=== PATIENT | male | born 1960 | race Caucasian/White ===

== ENCOUNTER 2016-10-07 00:21 | Emergency (ER) | payer OTHER ==
--- NOTE | 2016-10-07 00:59 | EDM.PDOC ---
ED HPI GENERAL MEDICAL PROBLEM - General Time Seen by Provider: 10/07/16 00:25 Source of Information: Reports: Patient, Family History Limitations: Reports: No Limitations - History of Present Illness INITIAL COMMENTS - FREE TEXT/NARRATIVE: According to patient he has been vacationing up here. He is not sure what happen. claims he must have walked out of his bed to use bathroom and as it is a new place might have walked into the stair. claims he rolled down about 9 steps and landed on ground floor. Since he fell he had not moved and had turned blue for about 10 minutes according to . feels like patient had lost consciousness but not sure. When the EMT arrived, pad hand had him in C-collar and oxygen. Pt claims his left lower chest hurts, hyperventilating. rate pain 10/10. starting to calm down now. no abdominal pain. No seizures. No confusion. No blurry vision. Onset: Today Onset Date: 10/06/16 Onset Time: 23:30 Duration: Getting Worse Chest Pain Score (Numeric/FACES): 8 - Related Data Allergies Allergy/AdvReac Type Severity Reaction Status Date / Time niacin Allergy Rash Verified 04/25/16 08:58 Home Meds: Home Meds Furosemide 20 mg PO BID 04/25/16 [History] Hydrochlorothiazide 25 mg PO DAILY 04/25/16 [History] Metoprolol Tartrate 6.25 mg PO BID 04/25/16 [History] Multivitamin [Multivitamins] 1 tab PO BEDTIME 04/25/16 [History] Simvastatin 40 mg PO BEDTIME 04/25/16 [History] Codeine/guaiFENesin [Robitussin AC] 180 ml PO Q4H PRN #0 cup 04/26/16 [Rx] Prednisone [IMW: predniSONE] 40 mg PO WITHBREAKFAST #5 tab 04/26/16 [Rx] Past Medical History Cardiovascular History: Reports: Afib, High Cholesterol, Hypertension, Pacemaker , Other (See Below) Other Cardiovascular History: defib. Neurological History: Reports: Headaches, Chronic Endocrine/Metabolic History: Reports: Obesity/BMI 30+ Hematologic History: Reports: Blood Transfusion(s) - Past Surgical History Musculoskeletal Surgical History: Reports: Other (See Below) Social & Family History - Family History Family Medical History: Noncontributory - Tobacco Use Smoking Status *Q: Never Smoker Years of Tobacco use: 25 Used Tobacco, but Quit: Yes Month Tobacco Last Used: 120 - Caffeine Use Caffeine Use: Reports: None - Alcohol Use Days Per Week of Alcohol Use: 7 Number of Drinks Per Day: 3 Total Drinks Per Week: 21 - Recreational Drug Use Recreational Drug Use: No ED ROS GENERAL - Review of Systems Review Of Systems: See Below Constitutional: Denies: Fever, Chills, Fatigue, Night Sweats, Diaphoresis HEENT: Denies: Sinus Problem, Throat Pain, Throat Swelling Respiratory: Reports: Wheezing, Pleuritic Chest Pain. Denies: Shortness of Breath, Cough, Sputum Cardiovascular: Reports: Chest Pain. Denies: Lightheadedness GI/Abdominal: Reports: Abdominal Pain. Denies: Constipation, Diarrhea, Hematemesis, Hematochezia, Nausea, Vomiting : Denies: Dysuria, Flank Pain, Hematuria, Urgency Musculoskeletal: Reports: Leg Pain, Joint Swelling Skin: Reports: Bruising. Denies: Pruritis, Rash Neurological: Denies: Confusion, Dizziness, Headache, Numbness, Paresthesia, Tingling, Tremors, Change in Speech ED EXAM, GENERAL - Physical Exam Exam: See Below Exam Limited By: No Limitations General Appearance: Alert, WD/WN, No Apparent Distress Eye Exam: Bilateral Eye: EOMI, PERRL Ears: Normal External Exam, Normal Canal, Hearing Grossly Normal, Normal TMs Nose: Normal Inspection, Normal Mucosa, Other (old dried blood in the right nares. no nasal spine tenderness) Throat/Mouth: Normal Inspection, Normal Lips, Normal Teeth, Normal Gums, Normal Oropharynx, Normal Voice, No Airway Compromise Head: Atraumatic, Normocephalic Neck: Normal Inspection, Supple, Non-Tender, Other (Neck in C-Collar) Respiratory/Chest: Lungs Clear, Normal Breath Sounds, No Accessory Muscle Use, Rhonchi (scatterred), Other (tender over the left lower chest to palaption) Cardiovascular: Normal Peripheral Pulses, Regular Rate, Rhythm, No Edema, No Gallop, No JVD, No Murmur, No Rub Peripheral Pulses: 2+: Carotid (L), Carotid (R), Brachial (R), Radial (L), Dorsalis Pedis (L), Dorsalis Pedis (R) GI/Abdominal: Normal Bowel Sounds, Soft, No Organomegaly, No Distention, No Abnormal Bruit, No Mass, Pelvis Stable, Tender (there is a large skin brusie over the left upper quadrant. No external bleeding.vague tenderness in the left upper quadrant). No: Guarding, Rigid, Rebound, Splenomegaly Back Exam: Normal Inspection, Full Range of Motion, NT Extremities: Normal Range of Motion, No Pedal Edema, Normal Capillary Refill, Other (Ther is swelling over th eright knee. More so over the attachment of the quadriceps tendon to the patella. Able to flex and extend the knee. tender over patella to pressure) Neurological: Alert, Oriented, CN II-XII Intact, Normal Cognition, Normal Gait, Normal Reflexes Skin Exam: Warm, Other (large skin brusing over the left upper quadrant of the abdomen and flank.) Course - Vital Signs Text/Narrative:: Pt rates his pain on 10/10 but appear calm and resting. He does c/o of pain in his left lower chest. His EKG is in normal sinus rhythm. His Vital are stable other than mild elevation of blood pressure secondary to pain. He did receive toradol 30mg IV after the CT was done. His CT head, C-spine appear normal. C-spine removed and palpation of the posterior neck is normal. Good ROM of the neck. Ct abdomen and pelvis is normal. Pt was catheterized and has clear urine flowing in the bag 1200 cc collected.UA is negative for hematuria. Ct chest shows left lateral rib fracture of 5th, 6th and seventh ribs. And posterior left 4th, 5th, 6th, 7th and 8th ribs. With mild patchy lingular contusion. CT abdomen is negative. CBC shows White count of 9 with Hemoglobin of 15gms. Pt did receive 2mg dilaudid for pain. His last vitals are stable BP of 127/ 79mmhg, pulse of 89/min, Spo2 around 92-94% on room air. - Orders/Labs/Meds Orders: Active Orders 24 hr Category Date Time Status EKG Documentation Completion [RC] ASDIRECTED Care 10/07/16 00:46 Active Insert Urinary Catheter [OM.PC] Q24H Care 10/07/16 01:15 Ordered Urinary Catheter Assessment [RC] ASDIRECTED Care 10/07/16 01:02 Active Cervical Spine wo Cont [CT] Stat Exams 10/07/16 00:46 Taken Chest Abdomen Pelvis wo Cont [CT] Stat Exams 10/07/16 00:46 Taken Head wo Cont [CT] Stat Exams 10/07/16 01:00 Taken Knee 1V or 2V Rt [CR] Stat Exams 10/07/16 00:48 Taken Labs: Laboratory Tests 10/07/16 10/07/16 Range/Units 00:50 01:01 WBC 9.5 (4.0-11.0) K/uL RBC 5.20 (4.50-6.50) M/uL Hgb 15.3 (13.0-18.0) g/dL Hct 44.5 (40.0-54.0) % MCV 86 (76-96) fL MCH 29.4 (27.0-32.0) pg MCHC 34.4 (31.0-35.0) g/dL RDW 13.7 (11.0-16.0) % Plt Count 172 (150-400) K/uL MPV 10.6 H (6.0-10.0) fL Neut % (Auto) 68.2 (45.0-70.0) % Lymph % (Auto) 18.1 L (20.0-40.0) % Linn % (Auto) 10.5 H (3.0-10.0) % Eos % (Auto) 2.6 (1.0-5.0) % Baso % (Auto) 0.6 H (0.0-0.5) % Neut # (Auto) 6.50 (2.00-7.50) K/uL Lymph # (Auto) 1.73 (1.50-4.00) K/uL Linn # (Auto) 1.00 H (0.20-0.80) K/uL Eos # (Auto) 0.25 (0.04-0.40) K/uL Baso # (Auto) 0.06 (0.02-0.10) K/uL Urine Color Yellow Urine Appearance Clear (CLEAR) Urine pH 5.0 (5.0-8.0) Ur Specific [place] 1.010 (1.003-1.030) Urine Protein 30 H (NEGATIVE) mg/dL Urine Glucose (UA) Negative (NEGATIVE) mg/dL Urine Ketones Negative (NEGATIVE) mg/dL Urine Occult Blood Trace-lysed H (NEGATIVE) Urine Nitrite Negative (NEGATIVE) Urine Bilirubin Negative (NEGATIVE) Urine Urobilinogen 0.2 (0.2-1.0) E.U./dL Ur Leukocyte Esterase Negative (NEGATIVE) Urine RBC 0-5 H /HPF Urine WBC 0-5 H /HPF Ur Squamous Epith Cells Few /HPF Meds: Medications Discontinued Medications Generic Name Dose Route Start Last Admin Trade Name Freq PRN Reason Stop Dose Admin Hydromorphone HCl 2 mg 10/07/16 02:20 10/07/16 02:22 Dilaudid IVPUSH 10/07/16 02:21 2 mg ONETIME ONE Administration Ketorolac Tromethamine 30 mg 10/07/16 01:40 10/07/16 01:37 Toradol IVPUSH 10/07/16 01:41 30 mg ONETIME ONE Administration Departure - Departure Time of Disposition: 04:00 Disposition: DC/Tfer to Acute Hospital 02 Condition: Fair Clinical Impression: Flail chest - Discharge Information Instructions: Rib Fracture, [id number] - Problem List & Annotations (1) Flail chest SNOMED Code(s): 79690616 Code(s): S22.5XXA - FLAIL CHEST, INITIAL ENCOUNTER FOR CLOSED FRACTURE Status: Acute - Problem List Review Problem List Initiated/Reviewed/Updated: Yes - My Orders Last 24 Hours: My Active Orders 10/07/16 00:46 EKG Documentation Completion [RC] ASDIRECTED Cervical Spine wo Cont [CT] Stat Chest Abdomen Pelvis wo Cont [CT] Stat 10/07/16 00:48 Knee 1V or 2V Rt [CR] Stat 10/07/16 01:00 Head wo Cont [CT] Stat 10/07/16 01:02 Urinary Catheter Assessment [RC] ASDIRECTED 10/07/16 01:15 Insert Urinary Catheter [OM.PC] Q24H - Assessment/Plan Last 24 Hours: My Active Orders 10/07/16 00:46 EKG Documentation Completion [RC] ASDIRECTED Cervical Spine wo Cont [CT] Stat Chest Abdomen Pelvis wo Cont [CT] Stat 10/07/16 00:48 Knee 1V or 2V Rt [CR] Stat 10/07/16 01:00 Head wo Cont [CT] Stat 10/07/16 01:02 Urinary Catheter Assessment [RC] ASDIRECTED 10/07/16 01:15 Insert Urinary Catheter [OM.PC] Q24H Assessment:: Left flail chest Plan: I did call [facility] to talk to trauma surgeon, discussed with emergency room physician,he did agree to accept patient. Pt prefers to go to 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 Patient does understand there might be a difference in transfer pricing that he might end up to pay out of pocket. He agrees to it. I did contact [facility], Discuss Pt with the trauma surgeon production supervisor off shift. her recommendation was to transfer patient to [facility] for further evaluation.I have discussed with patient and his spouse and they do agree for road Ambulance transfer. Pt is hemodynamically stable for the transfer. Further care as per .
[2016-10-07] MEDS ORDERED: Ketorolac 30 MG/ML SDV IVPUSH ONE (01:40)
[2016-10-07] MEDS ORDERED: HYDROmorphone 2 MG/ML Syringe IVPUSH ONE (02:20)
[2016-10-07] MEDS ORDERED: HYDROmorphone 2 MG/ML Syringe IVPUSH PRN (03:27)
[2016-10-07 04:20] VITALS: BP 150/87
--- NOTE | 2016-10-07 18:32 | CT ---
DATE OF SERVICE: 10/07/2016 CLINICAL DATA: Questionable loss of consciousness. UNENHANCED BRAIN CT Multislice acquisition through the brain without IV contrast was performed. No masses or mass effect. No intracranial hemorrhage. No evidence of acute or subacute infarct. No fractures. There is mucosal thickening in the ethmoid, sphenoid, and maxillary sinuses. There is some fluid noted within the sphenoid sinus. These findings are consistent with sinusitis. The exam is otherwise negative. IMPRESSION: No acute intracranial abnormalities. [id number] [facility]
--- NOTE | 2016-10-07 18:35 | CT ---
DATE OF SERVICE: 10/07/2016 CLINICAL DATA: Fall with abdominal wall bruising left sided. CERVICAL SPINE CT Multislice axial acquisition from the base of the skull to T1 was performed. The vertebral bodies are of average height and in good alignment. No acute fracture or dislocation. No focal lytic or blastic bone lesions. There is degenerative disc disease at multiple levels. There is facet joint hypertrophy throughout the cervical spine. There are degenerative changes involving the atlantoaxial articulation. The soft tissues are unremarkable. IMPRESSION: No acute abnormalities. [id number] [facility]
--- NOTE | 2016-10-07 18:45 | CT ---
DATE OF SERVICE: 10/07/2016 CLINICAL DATA: Chest pain. UNENHANCED CHEST CT Multislice acquisition through the chest without IV contrast was performed. Breathing motion artifact degrades image quality. No priors. There are atelectatic changes at the dependent portion of both lungs as well as in both lung bases and within the lingular segment of the left upper lobe. There is a small area of consolidation within the lingular segment of the left upper lobe. Pulmonary contusion should be considered. There are minimally displaced fractures of the left 5th, 6th, and 7th ribs and of the left posterior 4th, 5th, 6th, 7th, and 8th ribs. I do not see a pleural effusion. I do not see a pneumothorax. There is, however, a small amount of gas noted within the anterior mediastinum anterior to the heart. The heart size is normal. No pericardial effusion. No hilar or mediastinal adenopathy. No other significant findings. IMPRESSION: Findings as discussed above. UNENHANCED ABDOMEN AND PELVIC CT Multislice acquisition through the abdomen and pelvis without IV or oral contrast was performed. No priors. There is beam hardening and streak artifact produced by the patient's arms. There is also breathing motion artifact. There is beam hardening and streak artifact produced by the metallic densities in the lower lumbar spine. The unenhanced liver appears normal. The spleen appears normal. There is a small nodule anterior to the spleen consistent with an accessory spleen. The pancreas, right and left adrenals, and right and left kidneys appear normal. The bladder is fluid filled and appears normal. No free air. No free fluid. No dilated loops of bowel. No adenopathy. No displaced fractures. [id number] [facility]
--- NOTE | 2016-10-07 19:07 | CR ---
DATE OF SERVICE: 10/07/2016 CLINICAL DATA: Right knee swelling. RIGHT KNEE There are mild osteoarthritic changes of the knee joint. No acute fracture or dislocation. No lytic or blastic bone lesions. No joint effusion. [id number] [facility]
== END 2016-10-07 03:59 ==
LOC: LB.ED 00:21
DX: S22.5XXA Flail chest, initial encounter for closed fracture (principal); R10.9 Unspecified abdominal pain; R51 Headache; Z79.899 Other long term (current) drug therapy; I48.91 Unspecified atrial fibrillation; I10 Essential (primary) hypertension; E78.00 Pure hypercholesterolemia, unspecified; W10.9XXA Fall (on) (from) unspecified stairs and steps, initial encounter
CPT/HCPCS: 36415; 70450; 71250; 72125; 73560; 74176; 81001; 85025; 93005; 99285; A0425; A0429; J1170; J1885